=== PATIENT | male | born 1960 | race Caucasian/White ===

== ENCOUNTER → 2024-01-22 11:01 | Outpatient (REF) | payer OTHER, SELFPAY | LOC: RAD 11:01 | PROVIDERS: ATTENDING PHYSICIAN Family Medicine | DX: R05.9 Cough, unspecified (principal); R50.9 Fever, unspecified; R06.2 Wheezing; R09.89 Other specified symptoms and signs involving the circulatory and respiratory systems | CPT/HCPCS: 71046 ==

== ENCOUNTER → 2024-04-17 12:40 | Outpatient (REF) | payer OTHER, SELFPAY | LOC: RAD 12:40 | PROVIDERS: ATTENDING PHYSICIAN Family Medicine | DX: R11.0 Nausea (principal); R74.8 Abnormal levels of other serum enzymes; R20.2 Paresthesia of skin; G62.9 Polyneuropathy, unspecified | CPT/HCPCS: 74170; 95886; 95910; Q9967 ==

== ENCOUNTER → 2024-05-13 15:27 | Outpatient (REF) | payer OTHER, SELFPAY | LOC: MRI 3T 15:27 | PROVIDERS: ATTENDING PHYSICIAN Surgery; FAMILY PHYSICIAN Family Medicine | DX: R97.20 Elevated prostate specific antigen [PSA] (principal); R74.8 Abnormal levels of other serum enzymes | CPT/HCPCS: 70260; 72197; 73523; A9575 ==